=== PATIENT | male | born 1980 | race Caucasian/White ===

== ENCOUNTER 2017-07-11 23:38 | Inpatient (IN) | payer OTHER ==
[~2017-07-11] VITALS: Ht 172.7 cm; Wt 70.3 kg
[2017-07-12] VITALS (7 sets, daily range): BP systolic 90–121; BP diastolic 40–78
[2017-07-12] MEDS ORDERED: LOPERAMIDE HCL 2 MG CAPSULE PO PRN ×2 (00:45)
[2017-07-12] MEDS ORDERED: MAG HYDROX/AL HYDROX/SIMETH 30 ML LIQUID UDC PO PRN (00:45)
[2017-07-12] MEDS ORDERED: MIRALAX 17 GM POWD.PACK PO PRN (00:45)
[2017-07-12] MEDS ORDERED: CLONIDINE HCL 0.1 MG TABLET PO PRN (00:45)
[2017-07-12] MEDS ORDERED: ACETAMINOPHEN 325 MG TABLET PO PRN (00:45)
[2017-07-12] MEDS ORDERED: diphenhydrAMINE 50 MG CAPSULE PO PRN (00:45)
[2017-07-12] MEDS ORDERED: ONDANSETRON 4 MG/2 ML VIAL IM PRN (00:45)
[2017-07-12] MEDS ORDERED: MAGNESIUM HYDROXIDE 30 ML LIQUID UDC PO PRN (00:45)
[2017-07-12] MEDS ORDERED: HYDROXYZINE PAMOATE 25 MG CAPSULE PO PRN (00:45)
[2017-07-12 01:16] LABS: *AMPHETAMINE, URINE POSITIVE (NEGATIVE); *BARBITURATE, URINE NEGATIVE (NEGATIVE); *CANNABINOID, URINE NEGATIVE (NEGATIVE); *COCCAINE, URINE NEGATIVE (NEGATIVE); *OPIATE, URINE POSITIVE (NEGATIVE); *PHENCYCLIDINE SCREEN,URINE NEGATIVE (NEGATIVE)
[2017-07-12] MEDS: IBUPROFEN 600 MG TABLET PO PRN ×2 (02:18→15:17)
[2017-07-12] MEDS ORDERED: BUPR150T5 PO (02:40)
[2017-07-12 07:58] LABS: ALANINE AMINOTRANSFERASE 24 U/L (16-63); ALKALINE PHOSPHATASE 103 U/L (50-136); AMYLASE 37 U/L (25-115); ASPARTATE AMINOTRANSFERASE 12 U/L (15-37); BILIRUBIN,TOTAL 0.4 mg/dL (0.2-1.0); CARBON DIOXIDE 29 mmol/L (21-32); CHLORIDE 103 mmol/L (98-107); GLUCOSE 91 mg/dL (74-106); LIPASE 51 U/L (73-393); MAGNESIUM 2.1 mg/dL (1.8-2.4); POTASSIUM 3.8 mmol/L (3.5-5.1); TOTAL PROTEIN, SERUM 7.4 g/dL (6.4-8.2); UREA NITROGEN, BLOOD 19 mg/dL (7-18)
[2017-07-12 08:07] LABS: BASOPHILS # (AUTO) 0.1 K/uL (0.0-8.0); BASOPHILS % (AUTO) 0.5 % (0.0-2.0); EOSINOPHILS # (AUTO) 0.5 K/uL (0.0-0.7); EOSINOPHILS % (AUTO) 5.4 % (0.0-7.0); HEMATOCRIT 38.5 % (36.7-47.1); HEMOGLOBIN 12.9 g/dL (12.5-16.3); LYMPHOCYTES # (AUTO) 1.9 K/uL (20.0-40.0); LYMPHOCYTES % (AUTO) 19.7 % (20.5-51.5); MEAN CORPUSCULAR HEMOGLOBIN 28.1 uug (23.8-33.4); MEAN CORPUSCULAR HGB CONC 34 g/dL (32.5-36.3); MEAN CORPUSCULAR VOLUME 83.4 fL (73.0-96.2); MONOCYTES # (AUTO) 1.1 K/uL (2.0-10.0); MONOCYTES % (AUTO) 11.1 % (0.0-11.0); NEUTROPHILS % (AUTO) 63.3 % (38.5-71.5); PLATELET COUNT (AUTO) 208 K/uL (152-348); RED BLOOD CELL COUNT(AUTO) 4.61 MIL/uL (4.06-5.63); WHITE BLOOD COUNT (AUTO) 9.6 K/uL (3.6-10.2)
[2017-07-12 08:21] LABS: ETHANOL < 3 MG/DL (0-0)
[2017-07-12] MEDS: DICYCLOMINE HCL 20 MG TABLET PO PRN ×2 (08:55→15:17)
[2017-07-12] MEDS: ONDANSETRON ODT 4 MG TAB.RAPDIS SL PRN (08:55)
[2017-07-12] MEDS: BUPRENORPHINE HCL 2 MG TAB.SUBL SL PRN ×2 (08:55→15:18)
[2017-07-12] MEDS: METHOCARBAMOL 750 MG TABLET PO PRN ×3 (08:55→17:19)
[2017-07-12] MEDS: LORAZEPAM 1 MG TABLET PO PRN (15:17)
[2017-07-12] MEDS: BUPRENORPHINE HCL 2 MG TAB.SUBL SL SCH ×2 (17:10→22:02)
[2017-07-12] MEDS ORDERED: METHOCARBAMOL 750 MG TABLET ONE (17:19)
[2017-07-12] MEDS ORDERED: LORAZEPAM 1 MG TABLET PO ONE (18:45)
[2017-07-12] MEDS ORDERED: KETOROLAC TROMETHAMINE 30 MG INJ IM PRN (18:45)
[2017-07-12] MEDS ORDERED: BUPRENORPHINE HCL 2 MG TAB.SUBL SL ONE (18:45)
[2017-07-12] MEDS ORDERED: QUETIAPINE FUMARATE 25 MG TABLET PO ONE (19:30)
[2017-07-12] MEDS ORDERED: QUETIAPINE FUMARATE 25 MG TABLET ONE (19:34)
[2017-07-12] MEDS: GABAPENTIN 300 MG CAPSULE PO SCH (22:01)
[2017-07-13] VITALS: BP 115/72
[2017-07-13 04:00] VITALS: BP 110/70
[2017-07-13 08:00] VITALS: BP 118/61
[2017-07-13] MEDS: LORAZEPAM 1 MG TABLET PO PRN (08:21)
[2017-07-13] MEDS: DICYCLOMINE HCL 20 MG TABLET PO PRN (08:22)
[2017-07-13] MEDS: METHOCARBAMOL 750 MG TABLET PO PRN (08:22)
[2017-07-13] MEDS: GABAPENTIN 300 MG CAPSULE PO SCH ×3 (08:22→21:17)
[2017-07-13] MEDS: TUBERCULIN,PURIF.PROT.DERIV. 5 TU/0.1 ML TEST ID ONE ×2 (08:22→08:26)
[2017-07-13] MEDS: QUETIAPINE FUMARATE 25 MG TABLET PO PRN ×2 (08:22→14:14)
[2017-07-13] MEDS: BUPRENORPHINE HCL 2 MG TAB.SUBL SL SCH ×3 (08:22→21:22)
[2017-07-13 12:00] VITALS: BP 116/94
[2017-07-13 16:00] VITALS: BP 116/89
[2017-07-13] MEDS ORDERED: BUPRENORPHINE HCL 2 MG TAB.SUBL SL PRN (19:00)
[2017-07-13 20:00] VITALS: BP 98/62
[2017-07-14] VITALS: BP 95/59
[2017-07-14 04:00] VITALS: BP 92/55
[2017-07-14 08:00] VITALS: BP 105/62
[2017-07-14] MEDS: GABAPENTIN 300 MG CAPSULE PO SCH ×3 (08:32→21:23)
[2017-07-14] MEDS ORDERED: BUPRENORPHINE HCL 2 MG TAB.SUBL SL SCH (09:00)
[2017-07-14] MEDS ORDERED: KETOROLAC TROMETHAMINE 30 MG INJ IM PRN (10:45)
[2017-07-14 12:00] VITALS: BP 107/60
[2017-07-14] MEDS: BUPRENORPHINE HCL 2 MG TAB.SUBL SL SCH ×2 (14:17→21:23)
[2017-07-14 16:00] VITALS: BP 118/63
[2017-07-14 20:00] VITALS: BP 123/71
[2017-07-14] MEDS: BACLOFEN 10 MG TABLET PO SCH (21:24)
[2017-07-14] MEDS: CLONIDINE HCL 0.1 MG TABLET PO SCH (21:24)
[2017-07-15] VITALS: BP 101/56
[2017-07-15 02:06] LABS: HEPATITIS B SURFACE AG Negative (Negative)
[2017-07-15] MEDS: METHOCARBAMOL 750 MG TABLET PO PRN (05:37)
[2017-07-15] MEDS: LORAZEPAM 1 MG TABLET PO PRN ×2 (05:37→08:56)
[2017-07-15 08:00] VITALS: BP_SYST 115; BP_SYST 135; BP_DIAS 60; BP_DIAS 89
[2017-07-15] MEDS: DICYCLOMINE HCL 20 MG TABLET PO PRN (08:56)
[2017-07-15] MEDS: BACLOFEN 10 MG TABLET PO SCH ×2 (08:56→20:41)
[2017-07-15] MEDS: GABAPENTIN 300 MG CAPSULE PO SCH ×3 (08:56→20:41)
[2017-07-15] MEDS: CLONIDINE HCL 0.1 MG TABLET PO SCH ×2 (08:57→20:36)
[2017-07-15] MEDS: BUPRENORPHINE HCL 2 MG TAB.SUBL SL SCH ×3 (08:57→20:40)
[2017-07-15 12:00] VITALS: BP 91/54
[2017-07-15 16:00] VITALS: BP_SYST 116; BP_SYST 96; BP_DIAS 43; BP_DIAS 71
[2017-07-15] MEDS ORDERED: DICY20TA28 PO (19:36)
[2017-07-15] MEDS ORDERED: QUET25TA PO (19:36)
[2017-07-15] MEDS ORDERED: METH-406 PO (19:36)
[2017-07-15] MEDS ORDERED: CLON0.1T14 PO (19:36)
[2017-07-15] MEDS ORDERED: HYDR-3895 PO (19:36)
[2017-07-15] MEDS ORDERED: DIPH50CA37 PO (19:36)
[2017-07-15] MEDS ORDERED: IBUP-1955 PO (19:36)
[2017-07-15] MEDS ORDERED: GABA-534 PO ×2 (19:36)
[2017-07-15 20:00] VITALS: BP 95/58
[2017-07-16 01:55] VITALS: BP 95/63
[2017-07-16] MEDS: DICYCLOMINE HCL 20 MG TABLET PO PRN (02:02)
[2017-07-16 08:00] VITALS: BP 105/75
[2017-07-16] MEDS: CLONIDINE HCL 0.1 MG TABLET PO SCH ×3 (09:00→20:21)
[2017-07-16] MEDS ORDERED: BUPRENORPHINE HCL 2 MG TAB.SUBL SL SCH (09:00)
[2017-07-16] MEDS: GABAPENTIN 300 MG CAPSULE PO SCH ×3 (09:08→20:21)
[2017-07-16] MEDS: BACLOFEN 10 MG TABLET PO SCH ×3 (09:08→20:21)
[2017-07-16 12:00] VITALS: BP 106/69
[2017-07-16 16:00] VITALS: BP 120/69
[2017-07-16] MEDS: ONDANSETRON ODT 4 MG TAB.RAPDIS SL PRN (19:42)
[2017-07-16 20:00] VITALS: BP 118/68
[2017-07-17] VITALS: BP 98/61
[2017-07-17 04:00] VITALS: BP 90/58
[2017-07-17 08:00] VITALS: BP 100/60
[2017-07-17] MEDS: GABAPENTIN 300 MG CAPSULE PO SCH (08:23)
[2017-07-17] MEDS: DICYCLOMINE HCL 20 MG TABLET PO PRN (08:24)
[2017-07-17] MEDS: BACLOFEN 10 MG TABLET PO SCH (08:24)
[2017-07-17 08:29] VITALS: BP 100/60
[2017-07-17] MEDS: CLONIDINE HCL 0.1 MG TABLET PO SCH (08:29)
== END 2017-07-17 09:30 | disposition other institution (70) | DRG 895 ==
LOC: SRC 23:38
PROVIDERS: ADMIT Internal Medicine; ATTEND Internal Medicine
PROC: HZ2ZZZZ Detoxification Services for Substance Abuse Treatment (ICD-10-PCS; principal; 2017-07-11)
PROC: HZ41ZZZ Group Counseling for Substance Abuse Treatment, Behavioral (ICD-10-PCS; 2017-07-16)
DX: F11.23 Opioid dependence with withdrawal (principal); E86.0 Dehydration; F15.23 Other stimulant dependence with withdrawal; F32.9 Major depressive disorder, single episode, unspecified; F17.210 Nicotine dependence, cigarettes, uncomplicated; Z59.0 Homelessness; Z59.1 Inadequate housing; Z81.8 Family history of other mental and behavioral disorders; Z81.4 Family history of other substance abuse and dependence; Z86.59 Personal history of other mental and behavioral disorders; R79.89 Other specified abnormal findings of blood chemistry
CPT/HCPCS: 36415; 80307; 80324; 80361; 83690; 83735; 84443; 85025; 86580; 86592; 86705; 86803; 87340; 87806; G0480; J2405; Q0162; Q0163